=== PATIENT | female | born 1985 | race American Indian/Alaskan Native ===

== ENCOUNTER 2021-10-15 20:44 | Emergency (ER) | payer OTHER ==
[~2021-10-15] VITALS: Ht 160 cm; Wt 54.7 kg
[2021-10-15 20:51] VITALS: BP 107/65
[2021-10-15 22:25] LABS: CLARITY URINE TURBID (CLEAR); COLOR URINE RED (YELLOW); KETONES URINE NEGATIVE (NEGATIVE); LEUKOCYTE ESTERASE URINE 1+ (NEGATIVE); NITRITE URINE NEGATIVE (NEGATIVE); OCCULT BLOOD URINE 3+ (NEGATIVE); PROTEIN URINE 2+ (NEGATIVE); SPECIFIC GRAVITY URINE 1.025 (1.005-1.030); UROBILINOGEN URINE 0.2 E.U./dL (0.2-1.0)
[2021-10-15] MEDS ORDERED: ONDANSETRON 4MG ODT PO ONE (23:00)
[2021-10-15 23:49] LABS: HEMOGLOBIN. 10.6 g/dL (12.0-16.0); MEAN CORPUSCULAR HEMOGLOBIN 31.9 pg (28.0-32.0); MEAN CORPUSCULAR VOLUME 93.2 fL (81.0-99.0); MEAN PLATELET VOLUME 8.8 fl (7.4-10.4); PLATELET 140 x1000/uL (130-400); RED BLOOD CELL COUNT 3.33 mill/uL (4.2-5.4); RED CELL DISTRIBUTION WIDTH 12.7 % (11.6-14.6)
[2021-10-16 00:14] LABS: CHLORIDE 109 mEq/L (98-107)
[2021-10-16 00:37] LABS: B-HCG QUANTITATIVE 6056 mIU/mL (<3)
[2021-10-16 02:41] LABS: PLATELET ESTIMATE NORMAL
== END 2021-10-16 01:35 | disposition home or self-care (01) ==
LOC: ER 20:44
DX: O02.1 Missed abortion (principal)
CPT/HCPCS: 36415; 76801; 80053; 81003; 81025; 84702; 85025; 86850; 86900; 99284